=== PATIENT | male | born 1990 | race Caucasian/White ===

== ENCOUNTER 2023-02-19 05:52 | Emergency (ER) | payer OTHER, SELFPAY ==
[2023-02-19 05:56] VITALS: BP 152/92; PULSE 90; O2SAT 98
[2023-02-19 06:05] VITALS: BMI 21.9
[2023-02-19 06:42] VITALS: BP 142/77; PULSE 105; RESP 12; TEMP 36.6; O2SAT 94
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
--- NOTE | 2023-02-19 07:49 | PC.NURSE ---
ct scan notified pt has iv for next scan. has already gone for head ct. jarad cruz made aware pt lethargic. vss. answers to repeated voice. piv placed. no resp distress. collar intact. PRRLA. no head trauma externally noted reports hit head
[2023-02-19 07:50] VITALS: BP 136/68; PULSE 71; RESP 16; TEMP 36.6; O2SAT 98
[2023-02-19 09:37] VITALS: BP 121/75; PULSE 71; RESP 16; O2SAT 99
[2023-02-19 12:50] VITALS: BP 140/88; PULSE 86; RESP 16; TEMP 36.9; O2SAT 99
== END 2023-02-19 14:01 | disposition home or self-care (01) ==
PROVIDERS: Emergency Provider Student in an Organized Health Care Education/Training Program
DX: S13.4XXA Sprain of ligaments of cervical spine, initial encounter (principal); S16.1XXA Strain of muscle, fascia and tendon at neck level, initial encounter; V47.5XXA Car driver injured in collision with fixed or stationary object in traffic accident, initial encounter; M62.830 Muscle spasm of back; J18.9 Pneumonia, unspecified organism; F14.90 Cocaine use, unspecified, uncomplicated; Z11.52 Encounter for screening for COVID-19; Y93.89 Activity, other specified; Y92.414 Local residential or business street as the place of occurrence of the external cause; Y99.9 Unspecified external cause status
CPT/HCPCS: 36415; 70450; 71260; 72125; 74177; 80053; 80307; 82947; 83690; 85025; 87502; 87635; 99284; Q9967